=== PATIENT | female | born 1980 | race African-American/Black ===

== ENCOUNTER 2018-06-01 16:17 | Emergency (ER) | payer SELFPAY ==
[~2018-06-01] VITALS: Ht 180.3 cm; Wt 131.0 kg
[2018-06-01 19:51] LABS: BASOPHILS % 0.3 % (0.0-2.0); EOSINOPHILS % 1.8 % (0.0-5.0); HEMATOCRIT. 39.7 % (36.0-48.0); HEMOGLOBIN. 14.2 g/dL (12.0-16.0); LYMPHOCYTES % 28.6 % (20.0-50.0); MEAN CORPUSCULAR HEMOGLOBIN 30.9 pg (28.0-32.0); MEAN CORPUSCULAR VOLUME 86.1 fL (81.0-99.0); MEAN PLATELET VOLUME 6.8 fl (7.4-10.4); MONOCYTES % 5.8 % (2.0-8.0); NEUTROPHILS % 63.5 % (40.0-76.0); PLATELET 378 x1000/uL (130-400); RED BLOOD CELL COUNT 4.61 mill/uL (4.2-5.4); RED CELL DISTRIBUTION WIDTH 13.3 % (11.6-14.6)
[2018-06-01 19:56] LABS: CHLORIDE 104 mEq/L (98-107)
[2018-06-01] MEDS ORDERED: KETOROLAC 15MG/ML VIAL IM ONE (21:15)
[2018-06-01 21:20] VITALS: BP 129/85
== END 2018-06-01 21:22 | disposition home or self-care (01) ==
LOC: ER 18:37
DX: R07.81 Pleurodynia (principal); R00.1 Bradycardia, unspecified; R03.0 Elevated blood-pressure reading, without diagnosis of hypertension; F12.10 Cannabis abuse, uncomplicated; J45.909 Unspecified asthma, uncomplicated
CPT/HCPCS: 36415; 71045; 80048; 81025; 84484; 85025; 93005; 96372; 99285; J1885

== ENCOUNTER 2024-08-09 09:26 | Emergency (ER) | payer MEDICAID ==
[~2024-08-09] VITALS: Ht 180.3 cm; Wt 119.0 kg
[2024-08-09 09:38] VITALS: BP 116/89; O2SAT 99
[2024-08-09] MEDS: PREDNISONE 20MG TABLET PO ONE (10:39)
[2024-08-09] MEDS: FAMOTIDINE 20MG TABLET PO ONE (10:39)
[2024-08-09] MEDS: DIPHENHYDRAMINE 50MG CAPSULE PO ONE (11:10)
[2024-08-09] MEDS ORDERED: P20 MT (11:41)
[2024-08-09] MEDS ORDERED: B50 MT (11:41)
[2024-08-09] MEDS ORDERED: FAMO40TA70 MT (11:41)
[2024-08-09 12:02] VITALS: PULSE 98; RESP 18; TEMP 37.00296; O2SAT 99
== END 2024-08-09 12:10 | disposition home or self-care (01) ==
LOC: ER 09:26
DX: T78.40XA Allergy, unspecified, initial encounter (principal); J45.909 Unspecified asthma, uncomplicated; Z88.6 Allergy status to analgesic agent; X58.XXXA Exposure to other specified factors, initial encounter
CPT/HCPCS: 99284; Q0163; J7512